=== PATIENT | female | born 1940 | race Caucasian/White ===

== ENCOUNTER 2016-09-21 05:56 | Inpatient (IN) | payer MEDICARE, BC ==
[2016-09-17 16:11] LABS: BASOPHILS 0.2 %; BASOPHILS ABSOLUTE 0.02 10/3/uL (0.0-0.16); EOSINOPHILS 4.3 %; EOSINOPHILS ABSOLUTE 0.36 10/3/uL (0.0-0.53); HEMOGLOBIN 14.6 g/dL (12.0-16.0); IMMATURE GRANULOCYTES 0.1 %; IMMATURE GRANULOCYTES ABSOLUTE 0.01 10/3/uL (0.0-0.11); LYMPHOCYTES 22.3 %; LYMPHOCYTES ABSOLUTE 1.88 10/3/uL (0.67-4.30); MEAN CORPUS HGB CONC 32.7 g/dL (32.0-36.0); MEAN CORPUSCULAR HEMOGLOB 27.2 pg (26.0-34.0); MEAN PLATELET VOLUME 9.4 fL (9.2-13.0); MONOCYTES ABSOLUTE 0.76 10/3/uL (0.21-1.20); NEUTROPHILS 64.1 %; PLATELET COUNT 333 10/3/uL (150-400); RBC DISTRIBUTION WIDTH 15.2 % (12.0-16.0); WHITE BLOOD CELLS 8.4 10/3/uL (4.5-10.5)
[2016-09-17 16:12] LABS: HEMATOCRIT 44.7 % (36.0-48.0); MANUAL DIFF NO %; MEAN CORPUSCULAR VOLUME 83.4 fL (80-100); RED CELL COUNT 5.36 10/6/uL (4.0-5.6)
[2016-09-17 16:19] LABS: INTERNATIONAL NORMAL RATI 1.1 UNITS (-); PARTIAL THROMBO TIME 29.2 SEC (22.5-37.2); PROTIME (NOT ORD) 13.6 SEC (12.0-14.5)
[2016-09-17 16:40] LABS: ALBUMIN 3.6 G/DL (3.5-5.0); CALCIUM, SERUM 9.1 MG/DL (8.5-10.4); CHLORIDE, SERUM 103 MMOL/L (96-112); CO2 (CARBON DIOXIDE) 29 MMOL/L (24-34); CREATININE 0.61 MG/DL (0.55-1.02); GFR AFRICAN AMERICAN 104 ML/MIN (>=60); GFR NON AFRICAN AMERICAN 89 ML/MIN (>=60); GLOBULIN 3.5 G/DL (2.5-4.1); GLUCOSE, SERUM 160 MG/DL (60-99); POTASSIUM, SERUM 3.9 MMOL/L (3.5-5.3); SGOT(AST) 33 U/L (5-40); SGPT(ALT) 39 U/L (5-65); SODIUM, SERUM 143 MMOL/L (135-148); TOTAL BILIRUBIN 0.6 MG/DL (0-1.2); TOTAL PROTEIN 7.1 G/DL (6.0-8.5)
[2016-09-17 16:41] LABS: ALKALINE PHOSPHATASE 176 U/L (45-117); BUN (BLOOD UREA NITROGEN) 18 MG/DL (6-23)
--- NOTE | ~2016-09-21 | DS ---
Discharge Summary [facility] [address] [place]. [address] NAME: UVALDO FRIAS : 44 STATUS : DIS IN PAT#: [id number] AGE: 76 ADM/REG DATE : 09/21/16 MR#: [id number] REPORT SERV DATE: 10/28/16 DICTATED BY: RAQUEL BROWN DATE: 10/27/16 REPORT STATUS : Draft TRANSCRIBED BY: RACHELLE DATE: 10/27/16 ADMISSION DATE: 09/21/2016 DISCHARGE DATE: 10/01/2016 HISTORY OF PRESENT ILLNESS: The patient is a very pleasant white female who was found to have a pancreatic head mass. She underwent a Whipple on 09/21/2016. The details of her postoperative course could be found in the chart. Of note, she did suffer from delayed gastric emptying and had to be placed on TPN. The patient overall recovered from her surgery well and was discharged to [facility] on 09/27/2016. The patient will follow up with me in 2 weeks post discharge. Activity is per rehab. Diet is as tolerated maintaining TPN until she can maintain her calorie and fluid intake. JOSE/RACHELLE Raquel Brown MD / [id number] CC: MD Meena Villanueva M.D.
--- NOTE | ~2016-09-21 | OP ---
Record Of Operation [facility] [address] [place]. [address] NAME: UVALDO FRIAS : 44 STATUS : ADM IN [facility]#: [id number] AGE: 76 ADM/REG DATE : 09/21/16 MR#: [id number] REPORT SERV DATE: 09/21/16 DICTATED BY: RAQUEL BROWN DATE: 09/21/16 REPORT STATUS : Draft TRANSCRIBED BY: MODL DATE: 09/21/16 DATE OF PROCEDURE: 09/21/2016 SERVICE: General surgery. SURGEON: Raquel Brown MD, who was present and scrubbed throughout. ELIGIBILITY ANALYST: Amador Solitario MD. PREOPERATIVE DIAGNOSIS: Pancreatic adenocarcinoma. POSTOPERATIVE DIAGNOSIS: Pancreatic adenocarcinoma. PROCEDURES: 1. Pancreaticoduodenectomy. 2. Wedge liver biopsy. 3. Omental pedicle flap. ANESTHESIA: General endotracheal. ESTIMATED BLOOD LOSS: Approximately 5 hours. COMPLICATIONS: None. IV FLUIDS: 2600. SPECIMENS: As above. BRIEF HISTORY: The patient is a very pleasant 76-year-old white female with an unfortunate diagnosis pancreatic head mass. Workup revealed this to be an adenocarcinoma. The risks, benefits, and alternatives to the procedure were explained to the patient in detail. The risks include, but are not limited to, bleeding, infection, reoperation, injury to surrounding structures, reactions to anesthetic medications, incisional hernias, perioperative cardiac events, perioperative thromboembolic events, perioperative pulmonary events including prolong ventilation, anastomotic leak, including pancreatic leak, delayed gastric emptying and possible . The patient is at a higher risk than normal due to her underlying COPD as well as previous lung resection. The patient and family stated a clear understanding of all the risks, as well as rationals of increased risks and requested the procedure be done. DESCRIPTION OF PROCEDURE: After surgical consent was obtained, the patient was transported to the operative theater, and onto the operating room table in supine position. General endotracheal anesthesia was administered without difficulty. The patient's abdomen was prepped and draped in standard sterile fashion. Preoperative antibiotics were given. A time-out was performed in order to ensure the proper patient and procedure. An incision was made through the upper midline and the underlying tissues were divided using electrocautery. Record Of Operation [facility] [address] [facility] [place]. [address] NAME: UVALDO FRIAS : 44 STATUS : ADM IN PAT#: [id number] AGE: 76 ADM/REG DATE : 09/21/16 MR#: [id number] REPORT SERV DATE: 09/21/16 DICTATED BY: RAQUEL BROWN DATE: 09/21/16 REPORT STATUS : Draft TRANSCRIBED BY: MODL DATE: 09/21/16 The fascia was divided sharply and the abdominal cavity was entered bluntly. The falciform ligament was ligated, divided, and preserved. A wound protector and Bookwalter devices were implemented to aid visualization. The abdomen then was palpated, no evidence of ascites, abdomen was examined visually and also palpated, and there was one several centimeter-size lesion in the left lobe. This was biopsied in a wedge fashion. Hemostasis was controlled using electrocautery. Pathologic examination revealed a sclerotic hemangioma. [QAMARKER] we proceeded with our dissection. We divided the gastrocolic ligament and entered the lesser sac. The middle colic and right upper pulmonary veins were identified and followed down to the SUV. A tunnel was made between the portal vein and pancreas inferiorly. We then turned our attention to the teddy hepatis. We divided the gastrohepatic ligament and identified the common hepatic artery. A large teddy hepatis lymph node was excised and sent with the specimen. It was enlarged but soft, benign. We divided the right gastric artery and vein, and identified the gastroduodenal artery. We doubly ligated distally and proximally, and then divided with scissors. Prior to transecting the gastroduodenal artery, we occluded it and tested the arterial pulse to the hepatic artery and it remained unchanged. We kocherized the duodenum and felt no disease in the retroperitoneum. We encircled the common bile duct easily and identified the portal vein at the superior aspect of the pancreas. A tunnel was created between the portal vein superiorly and connected with a tunnel inferiorly. This plane was preserved with a Josie drain. We divided the common bile duct using electrocautery. The previously placed stent with inferior to our incision and was in the specimen. we divided the greater and lesser omentum at the distal stomach and then divided the stomach several centimeters upstream from the pylorus using a ARIAN stapler with a green load. We then turned our attention to the proximal jejunum. The proximal jejunum was identified. There were multiple [QAMARKER] large diverticula and evidence of chronic inflammation in the past. We freed the jejunum from the transverse colon mesentery and then divided the proximal jejunum 20 cm distal to ligament of Treitz. The mesentery of the proximal jejunum and the ligament of Treitz were divided using the Harmonic Scalpel. This was done until we could sweep the jejunum to the right side of the abdomen. We then placed hemostatic stay sutures on the anterior and superior aspect of the pancreas and divided the pancreatic neck over the Marshall drain using electrocautery. We then very carefully dissected the uncinate process away from the portal vein and transected it using the Harmonic Scalpel. During this transection the superior mesenteric artery was identified and preserved. We marked the biliary and pancreatic margins and these were tested and found to be benign. The tumor was identified within the pancreatic head. At this point, we began our reconstruction. We found a bare area in the transverse mesentery [QAMARKER] and opened this up with electrocautery. We brought our proximal jejunum up through this hole without difficulty. We elevated the pancreatic body up away from the splenic vein in preparation for the pancreaticojejunostomy. This was done in a two layer biqe-jk-bxfwgq fashion. The inner layer was done again in a zgbx-cn-hnvuax fashion using interrupted 4-0 PDS sutures. The outer layer was done with interrupted 3-0 silks both superiorly and inferiorly. Approximately 10 cm downstream from the pancreaticojejunostomy, we created our hepaticojejunostomy. This was done, a single layer end-to-side [id number]-btlxff fashion. We used interrupted 4-0 PDS sutures. The jejunum was tacked to the transverse colon mesentery with interrupted silk suture. The distal jejunum was brought up in a loop fashion for gastrojejunostomy. This was done in the antecolic stapled fgoc-fj-xlqu functional end-to-end fashion. We created our anastomosis using a ARIAN 75 stapler and the common enterotomy was then closed with TX60B. We placed cross sutures to Record Of Operation [address] [place]. [address] NAME: UVALDO FRIAS : 44 STATUS : ADM IN PAT#: [id number] AGE: 76 ADM/REG DATE : 09/21/16 MR#: [id number] REPORT SERV DATE: 09/21/16 DICTATED BY: RAQUEL BROWN DATE: 09/21/16 REPORT STATUS : Draft TRANSCRIBED BY: RACHELLE DATE: 09/21/16 stabilize our anastomosis and then sutured the greater omentum on top of the anastomosis for further protection. The falciform ligament which had been previously preserved was brought down on top of the pancreaticojejunostomy and sutured in place with omental pedicle flap with interrupted silk sutures. We placed two 19-Portuguese round Neil drains around our anastomoses. The left-sided drain laid superior to our anastomoses and the right-sided drain wrapped underneath all the anastomoses and then up and over. We copiously irrigated out the abdomen with 4 L of sterile saline. There was no evidence of additional pathology. We then closed the fascial defect, the most superior aspect with interrupted Vicryl suture and then ran the rest with a running looped PDS suture. The subcutaneous tissues above the fascia were irrigated out with pulse lavage system x4 L. The skin was closed with stapling device. The drains were secured at the skin level with nylon suture. The wounds were all dressed in standard fashion. At the end of the instrument, lap, and needle counts were all correct. The patient was awoke from anesthesia, having tolerated the procedure without difficulty and returned to PACU in stable condition. JOSE/RACHELLE Raquel Brown MD / [id number] CC: Raquel Brown MD
--- NOTE | ~2016-09-21 | CN ---
Consultation Report [facility] [address] [place]. [address] NAME: UVALDO FRAIS : 44 STATUS : ADM IN [facility]#: [id number] AGE: 76 ADM/REG DATE : 09/21/16 MR#: [id number] REPORT SERV DATE: 09/21/16 DICTATED BY: RUSTY AMARO DATE: 09/21/16 REPORT STATUS : Draft TRANSCRIBED BY: RACHELLE DATE: 09/21/16 CONSULTATION DATE OF CONSULTATION: TIME: 1740 hours. HISTORY OF PRESENT ILLNESS: The patient is a 76-year-old white female who this afternoon underwent Whipple procedure for pancreatic adenocarcinoma. Now postop, she was extubated in the PACU. Her medical record and anesthesia record were reviewed. Currently, the patient is awake, alert, responsive. On nasal cannula oxygen. The anesthesia record revealed evidence of getting her Neil-Synephrine during surgery; however, she is not it now. Also, she had 20,000 mL of lactated Ringer's and 500 mL albumin. She had estimated blood loss not mentioned. PAST MEDICAL HISTORY: 1. Significant for lung cancer status post surgery at age 44. 2. Biliary stent placement for obstructive jaundice. 3. COPD. 4. Obstructive sleep apnea. 5. Intolerant to BiPAP. 6. Hypercholesterolemia. 7. Right rotator cuff repair. 8. Colon polyps removal. 9. UTI. 10.Positive FERNANDO. She is status post spinal surgery in lumbar area, status post hysterectomy, status post right lobectomy 40% along with recent cholecystectomy. ALLERGIES: NO KNOWN ALLERGIES. FAMILY HISTORY: Breast cancer. REVIEW OF SYSTEMS: Noted above. Otherwise, negative and noncontributory. MEDICATIONS: As listed, which included Neurontin, Lasix, Cymbalta, Voltaren, topical gel, vitamin D, Zyrtec, ProAir, Singulair, multivitamins, omeprazole, potassium, tiotropium and olodaterol, Detrol, salsalate, Mucinex, Benefiber. PHYSICAL EXAMINATION: GENERAL: The patient is awake and responsive. VITAL SIGNS: Stable. Blood pressure 117/60, pulse 119, afebrile, sat 95% on 6 L. HEENT: Head is normocephalic. Sclerae and conjunctivae are clear. NECK: Supple. No JVD. Good carotid upstroke. Consultation Report [facility] [address] [place]. [address] NAME: UVALDO FRIAS : 44 STATUS : ADM IN PAT#: [id number] AGE: 76 ADM/REG DATE : 09/21/16 MR#: [id number] REPORT SERV DATE: 09/21/16 DICTATED BY: RUSTY AMARO DATE: 09/21/16 REPORT STATUS : Draft TRANSCRIBED BY: MODL DATE: 09/21/16 CHEST: Clear to auscultation and percussion. No wheezing or rhonchi. CARDIAC: S1 and S2. Sinus tach. No murmurs. ABDOMEN: Dressed. EXTREMITIES: No clubbing, cyanosis, or edema. Pulses palpable. NEUROLOGIC: Cranial nerves 2 through 12 grossly intact. Deep tendon reflexes normal. LABORATORY DATA: Reveal pH 7.31, pCO2 of 45, pO2 of 96 on 50%. Base excess minus 4. Sodium 142, potassium 4.9, chloride 109, CO2 of 25, BUN 22, creatinine 0.77, glucose 173, calcium 7.9, magnesium 1.7. Total protein 5.5, albumin 2.9. ALT 115, AST 231. H and H 12.4 and 3.7, white count 16,200, platelet count is normal. Chest x-ray is clear. Platelet count 307,000, 71 polys, 10 bands. IMPRESSION: Status post Whipple procedure, mild chronic obstructive pulmonary disease, mild obstructive sleep apnea, previous biliary operations. PLAN: Continue bronchodilator protocol. Monitor fluid intake. RP/RACHELLE Rusty Amaro M.D. / [id number] CC: MD Meena Villanueva M.D.
[~2016-09-21 05:56] MED LIST: ALLERGY INJECTIONS IM/SC; BACDS PO; BENEFIBER PO; BIOTIN PO; BL FLAX SEED1000 MG OR; BREO ELLIPTA INH; CELEBREX2 PO; CYMBALTA60 PO; DETROLLA4 PO; FISH-EPA1000 MG PO; HARD NAILS PO; KDUR10 PO; L40 PO; MICROZIDE PO; MULTIPLE VIT PO; MULTIVIT/MIN PO; NEUR300 PO; PRAVAC PO; PRILO PO; PROAIR HFA INH; RESTASIS OPH; SAL750 PO; SINGULAIR1 PO; SPIRIVA INH; STIOLTO RESPIMAT4 GM INH; SYMBICORT 160/41 INH INH; VESICARE10 MG PO; VITAMIN D2000 UNIT PO; VITAMIN K PO; VOLTAREN1 % TOP; ZYRTEC ALLGY10 MG PO; [UNRECOGNIZED DRUG - OTHER] PO; [UNRECOGNIZED DRUG - OTHER] PO; [UNRECOGNIZED DRUG - OTHER] PO; [UNRECOGNIZED DRUG - OTHER] PO
[2016-09-21 13:18] LABS: BE (BASE EXCESS) -2.2 MEQ/L (0 +/- 2.5); CARBOXYHEMOGLOBIN 0.3 % (0-3); HCO3 (ACTUAL BICARBONATE) 23.1 MEQ/L (23-27); HEMOBLOGIN CONTENT 12.3 G/DL (12-16); INSTRUMENT SERIAL # 11843; METHEMOGLOBIN 0.4 % (0-3); MODE ANETHESIA MACHINE; O2 CONTENT 16.7 VOL% (18-24); PCO2 (CO2 TENSION) 42 MMHG (35-45); PO2 (O2 TENSION) 99 MMHG (79-93); SAMPLE Arterial; pH 7.36 (7.37-7.43)
[2016-09-21 16:05] LABS: HEMOGLOBIN 12.4 g/dL (12.0-16.0); MEAN CORPUSCULAR HEMOGLOB 26.7 pg (26.0-34.0); MEAN CORPUSCULAR VOLUME 83.4 fL (80-100); MEAN PLATELET VOLUME 9.2 fL (9.2-13.0); PLATELET COUNT 307 10/3/uL (150-400); RBC DISTRIBUTION WIDTH 15.5 % (12.0-16.0); RED CELL COUNT 4.64 10/6/uL (4.0-5.6)
[2016-09-21 16:15] LABS: HEMATOCRIT 38.7 % (36.0-48.0); MANUAL DIFF YES %; WHITE BLOOD CELLS 16.2 10/3/uL (4.5-10.5)
[2016-09-21 16:20] LABS: A/G RATIO 1.1 (0.7-1.9); ALBUMIN 2.9 G/DL (3.5-5.0); ALKALINE PHOSPHATASE 102 U/L (45-117); BUN (BLOOD UREA NITROGEN) 22 MG/DL (6-23); CALCIUM, SERUM 7.9 MG/DL (8.5-10.4); CHLORIDE, SERUM 109 MMOL/L (96-112); CO2 (CARBON DIOXIDE) 25 MMOL/L (24-34); CREATININE 0.77 MG/DL (0.55-1.02); GFR AFRICAN AMERICAN 88 ML/MIN (>=60); GFR NON AFRICAN AMERICAN 76 ML/MIN (>=60); GLOBULIN 2.6 G/DL (2.5-4.1); GLUCOSE, SERUM 173 MG/DL (60-99); PHOSPHORUS, SERUM 4.7 MG/DL (2.5-4.5); POTASSIUM, SERUM 4.9 MMOL/L (3.5-5.3); SGOT(AST) 236 U/L (5-40); SGPT(ALT) 115 U/L (5-65); SODIUM, SERUM 142 MMOL/L (135-148); TOTAL BILIRUBIN 0.8 MG/DL (0-1.2); TOTAL PROTEIN 5.5 G/DL (6.0-8.5)
[2016-09-21 16:39] LABS: CARBOXYHEMOGLOBIN 0.1 % (0-3); DEVICE SM; HCO3 (ACTUAL BICARBONATE) 22.2 MEQ/L (23-27); HEMOBLOGIN CONTENT 13.3 G/DL (12-16); INSTRUMENT SERIAL # 11843; METHEMOGLOBIN 0.3 % (0-3); OPERATOR ID 19104; PCO2 (CO2 TENSION) 45 MMHG (35-45); PO2 (O2 TENSION) 96 MMHG (79-93); SAMPLE Arterial; pH 7.31 (7.37-7.43)
[2016-09-21 17:35] LABS: BAND NEUTROPHILS 16 %; IMMATURE GRANS ABSOLUTE (CALC) 0.65 10/3/uL (0.0-0.11); LYMPHOCYTES 7 %; LYMPHOCYTES ABSOLUTE (CALC) 1.13 10/3/uL (0.67-4.30); METAMYELOCYTES 4 %; MONOCYTES 2 %; MONOCYTES ABSOLUTE (CALC) 0.32 10/3/uL (0.21-1.20); NEUTROPHILS ABSOLUTE (CALC) 14.09 10/3/uL (2.02-8.40); PLATELET ESTIMATE ADQ (ADEQUATE); RBC MORPHOLOGY NORM (NORMAL); SEGMENTED NEUTROPHIL (0) 71 %; TOTAL NUCLEATED CELLS 100
[2016-09-22 04:15] LABS: BASOPHILS 0.2 %; BASOPHILS ABSOLUTE 0.03 10/3/uL (0.0-0.16); EOSINOPHILS 0.1 %; EOSINOPHILS ABSOLUTE 0.02 10/3/uL (0.0-0.53); HEMOGLOBIN 10.8 g/dL (12.0-16.0); IMMATURE GRANULOCYTES 0.4 %; IMMATURE GRANULOCYTES ABSOLUTE 0.05 10/3/uL (0.0-0.11); LYMPHOCYTES 9.8 %; LYMPHOCYTES ABSOLUTE 1.37 10/3/uL (0.67-4.30); MEAN CORPUS HGB CONC 31.9 g/dL (32.0-36.0); MEAN CORPUSCULAR VOLUME 84.8 fL (80-100); MEAN PLATELET VOLUME 9.2 fL (9.2-13.0); MONOCYTES 12.5 %; MONOCYTES ABSOLUTE 1.75 10/3/uL (0.21-1.20); NEUTROPHILS ABSOLUTE 10.79 10/3/uL (2.02-8.40); PLATELET COUNT 270 10/3/uL (150-400); RBC DISTRIBUTION WIDTH 15.4 % (12.0-16.0)
[2016-09-22 04:16] LABS: HEMATOCRIT 33.9 % (36.0-48.0); MANUAL DIFF NO %
[2016-09-22 04:32] LABS: ALBUMIN 2.7 G/DL (3.5-5.0); CALCIUM, SERUM 7.3 MG/DL (8.5-10.4); CHLORIDE, SERUM 108 MMOL/L (96-112); CO2 (CARBON DIOXIDE) 28 MMOL/L (24-34); CREATININE 0.57 MG/DL (0.55-1.02); GFR AFRICAN AMERICAN 106 ML/MIN (>=60); GFR NON AFRICAN AMERICAN 91 ML/MIN (>=60); GLOBULIN 2.8 G/DL (2.5-4.1); GLUCOSE, SERUM 153 MG/DL (60-99); PHOSPHORUS, SERUM 4.3 MG/DL (2.5-4.5); POTASSIUM, SERUM 4.1 MMOL/L (3.5-5.3); SGOT(AST) 120 U/L (5-40); SGPT(ALT) 83 U/L (5-65); SODIUM, SERUM 143 MMOL/L (135-148); TOTAL BILIRUBIN 0.8 MG/DL (0-1.2); TOTAL PROTEIN 5.5 G/DL (6.0-8.5)
[2016-09-22 04:36] LABS: ALKALINE PHOSPHATASE 85 U/L (45-117); BUN (BLOOD UREA NITROGEN) 17 MG/DL (6-23)
[2016-09-22 05:34] LABS: BE (BASE EXCESS) -0.6 MEQ/L (0 +/- 2.5); CARBOXYHEMOGLOBIN 0.9 % (0-3); DEVICE NC; HEMOBLOGIN CONTENT 11.4 G/DL (12-16); INSTRUMENT SERIAL # 8083; METHEMOGLOBIN 0.1 % (0-3); O2 CONTENT 14.8 VOL% (18-24); OPERATOR ID 16469; PCO2 (CO2 TENSION) 45 MMHG (35-45); PO2 (O2 TENSION) 69 MMHG (79-93); SAMPLE Arterial; pH 7.36 (7.37-7.43)
[2016-09-22 10:22] LABS: ALLENS TEST Pos; BE (BASE EXCESS) 1.8 MEQ/L (0 +/- 2.5); CARBOXYHEMOGLOBIN 1.3 % (0-3); DEVICE Nasal Cannula @ 6 l/; HCO3 (ACTUAL BICARBONATE) 26.8 MEQ/L (23-27); HEMOBLOGIN CONTENT 10.7 G/DL (12-16); INSTRUMENT SERIAL # 8083; O2 CONTENT 14.3 VOL% (18-24); OPERATOR ID 14382; PCO2 (CO2 TENSION) 44 MMHG (35-45); PO2 (O2 TENSION) 78 MMHG (79-93); SAMPLE Arterial
[2016-09-23 05:03] LABS: CALCIUM, SERUM 7.6 MG/DL (8.5-10.4); CHLORIDE, SERUM 105 MMOL/L (96-112); CO2 (CARBON DIOXIDE) 28 MMOL/L (24-34); CREATININE 0.49 MG/DL (0.55-1.02); GFR AFRICAN AMERICAN 111 ML/MIN (>=60); GFR NON AFRICAN AMERICAN 96 ML/MIN (>=60); GLUCOSE, SERUM 150 MG/DL (60-99); POTASSIUM, SERUM 4.1 MMOL/L (3.5-5.3); SODIUM, SERUM 142 MMOL/L (135-148)
[2016-09-23 05:05] LABS: BUN (BLOOD UREA NITROGEN) 10 MG/DL (6-23); PHOSPHORUS, SERUM 2.1 MG/DL (2.5-4.5)
[2016-09-23 05:20] LABS: BASOPHILS 0.2 %; BASOPHILS ABSOLUTE 0.03 10/3/uL (0.0-0.16); EOSINOPHILS 3.3 %; EOSINOPHILS ABSOLUTE 0.46 10/3/uL (0.0-0.53); HEMATOCRIT 31.9 % (36.0-48.0); HEMOGLOBIN 9.7 g/dL (12.0-16.0); IMMATURE GRANULOCYTES 0.4 %; IMMATURE GRANULOCYTES ABSOLUTE 0.05 10/3/uL (0.0-0.11); LYMPHOCYTES 11.5 %; LYMPHOCYTES ABSOLUTE 1.59 10/3/uL (0.67-4.30); MEAN CORPUS HGB CONC 30.4 g/dL (32.0-36.0); MEAN CORPUSCULAR HEMOGLOB 26.3 pg (26.0-34.0); MEAN CORPUSCULAR VOLUME 86.4 fL (80-100); MEAN PLATELET VOLUME 9.4 fL (9.2-13.0); MONOCYTES 13.3 %; MONOCYTES ABSOLUTE 1.83 10/3/uL (0.21-1.20); NEUTROPHILS 71.3 %; NEUTROPHILS ABSOLUTE 9.81 10/3/uL (2.02-8.40); PLATELET COUNT 265 10/3/uL (150-400); RED CELL COUNT 3.69 10/6/uL (4.0-5.6); WHITE BLOOD CELLS 13.8 10/3/uL (4.5-10.5)
[2016-09-23 05:23] LABS: MANUAL DIFF NO %
[2016-09-24 04:49] LABS: BASOPHILS 0.2 %; BASOPHILS ABSOLUTE 0.02 10/3/uL (0.0-0.16); EOSINOPHILS 7.7 %; EOSINOPHILS ABSOLUTE 0.88 10/3/uL (0.0-0.53); HEMATOCRIT 29.4 % (36.0-48.0); HEMOGLOBIN 9.2 g/dL (12.0-16.0); IMMATURE GRANULOCYTES 0.4 %; IMMATURE GRANULOCYTES ABSOLUTE 0.04 10/3/uL (0.0-0.11); LYMPHOCYTES 16.4 %; LYMPHOCYTES ABSOLUTE 1.87 10/3/uL (0.67-4.30); MEAN CORPUS HGB CONC 31.3 g/dL (32.0-36.0); MEAN CORPUSCULAR HEMOGLOB 27.3 pg (26.0-34.0); MEAN CORPUSCULAR VOLUME 87.2 fL (80-100); MEAN PLATELET VOLUME 9.6 fL (9.2-13.0); MONOCYTES 11.8 %; MONOCYTES ABSOLUTE 1.35 10/3/uL (0.21-1.20); NEUTROPHILS 63.5 %; NEUTROPHILS ABSOLUTE 7.24 10/3/uL (2.02-8.40); PLATELET COUNT 226 10/3/uL (150-400); RBC DISTRIBUTION WIDTH 15.5 % (12.0-16.0); RED CELL COUNT 3.37 10/6/uL (4.0-5.6); WHITE BLOOD CELLS 11.4 10/3/uL (4.5-10.5)
[2016-09-24 04:54] LABS: MANUAL DIFF NO %
[2016-09-24 05:09] LABS: CALCIUM, SERUM 7.8 MG/DL (8.5-10.4); CHLORIDE, SERUM 106 MMOL/L (96-112); CO2 (CARBON DIOXIDE) 29 MMOL/L (24-34); CREATININE 0.35 MG/DL (0.55-1.02); GFR AFRICAN AMERICAN 124 ML/MIN (>=60); GFR NON AFRICAN AMERICAN 107 ML/MIN (>=60); SODIUM, SERUM 142 MMOL/L (135-148)
[2016-09-24 05:11] LABS: BUN (BLOOD UREA NITROGEN) 4 MG/DL (6-23); GLUCOSE, SERUM 106 MG/DL (60-99); POTASSIUM, SERUM 4.1 MMOL/L (3.5-5.3)
[2016-09-27 20:25] LABS: AMYLASE BODY FLUID 10 U/L
[2016-09-27 20:25] LABS: AMYLASE BODY FLUID 13 U/L
[2016-09-27 21:51] LABS: BD FL SOURCE (NOT ORD) DRAIN 1
[2016-09-27 21:51] LABS: BD FL SOURCE (NOT ORD) DRAIN 2
[2016-09-28 08:29] LABS: BASOPHILS 0.2 %; BASOPHILS ABSOLUTE 0.03 10/3/uL (0.0-0.16); EOSINOPHILS 9.1 %; EOSINOPHILS ABSOLUTE 1.13 10/3/uL (0.0-0.53); HEMATOCRIT 31.1 % (36.0-48.0); HEMOGLOBIN 9.8 g/dL (12.0-16.0); IMMATURE GRANULOCYTES ABSOLUTE 0.25 10/3/uL (0.0-0.11); LYMPHOCYTES 12.9 %; MEAN CORPUS HGB CONC 31.5 g/dL (32.0-36.0); MEAN CORPUSCULAR HEMOGLOB 26.6 pg (26.0-34.0); MEAN CORPUSCULAR VOLUME 84.3 fL (80-100); MEAN PLATELET VOLUME 8.7 fL (9.2-13.0); MONOCYTES 7.8 %; MONOCYTES ABSOLUTE 0.97 10/3/uL (0.21-1.20); NEUTROPHILS ABSOLUTE 8.44 10/3/uL (2.02-8.40); PLATELET COUNT 367 10/3/uL (150-400); RBC DISTRIBUTION WIDTH 15.3 % (12.0-16.0); RED CELL COUNT 3.69 10/6/uL (4.0-5.6); WHITE BLOOD CELLS 12.4 10/3/uL (4.5-10.5)
[2016-09-28 08:39] LABS: BUN (BLOOD UREA NITROGEN) 7 MG/DL (6-23); CALCIUM, SERUM 8.3 MG/DL (8.5-10.4); CHLORIDE, SERUM 102 MMOL/L (96-112); CO2 (CARBON DIOXIDE) 25 MMOL/L (24-34); CREATININE 0.24 MG/DL (0.55-1.02); GFR AFRICAN AMERICAN 141 ML/MIN (>=60); GFR NON AFRICAN AMERICAN 121 ML/MIN (>=60); GLUCOSE, SERUM 104 MG/DL (60-99); POTASSIUM, SERUM 3.6 MMOL/L (3.5-5.3); SODIUM, SERUM 140 MMOL/L (135-148)
[2016-09-28 09:14] LABS: PREALBUMIN 11.3 MG/DL (17.0-43.0)
[2016-09-28 09:15] LABS: PHOSPHORUS, SERUM 3.3 MG/DL (2.5-4.5); TRIGLYCERIDE 167 MG/DL (< 150)
[2016-09-29 06:11] LABS: CALCIUM, SERUM 8.6 MG/DL (8.5-10.4); CHLORIDE, SERUM 102 MMOL/L (96-112); CO2 (CARBON DIOXIDE) 29 MMOL/L (24-34); CREATININE 0.35 MG/DL (0.55-1.02); GFR AFRICAN AMERICAN 124 ML/MIN (>=60); GFR NON AFRICAN AMERICAN 107 ML/MIN (>=60); PHOSPHORUS, SERUM 2.8 MG/DL (2.5-4.5); POTASSIUM, SERUM 3.5 MMOL/L (3.5-5.3); SODIUM, SERUM 140 MMOL/L (135-148)
[2016-09-29 06:12] LABS: BUN (BLOOD UREA NITROGEN) 11 MG/DL (6-23); GLUCOSE, SERUM 130 MG/DL (60-99)
[2016-09-30 06:55] LABS: BUN (BLOOD UREA NITROGEN) 19 MG/DL (6-23); CHLORIDE, SERUM 102 MMOL/L (96-112); CO2 (CARBON DIOXIDE) 27 MMOL/L (24-34); CREATININE 0.41 MG/DL (0.55-1.02); GFR AFRICAN AMERICAN 118 ML/MIN (>=60); GFR NON AFRICAN AMERICAN 102 ML/MIN (>=60); GLUCOSE, SERUM 156 MG/DL (60-99); POTASSIUM, SERUM 3.9 MMOL/L (3.5-5.3); SODIUM, SERUM 137 MMOL/L (135-148)
[2016-10-01 07:05] LABS: BUN (BLOOD UREA NITROGEN) 20 MG/DL (6-23); CALCIUM, SERUM 8.7 MG/DL (8.5-10.4); CHLORIDE, SERUM 101 MMOL/L (96-112); CO2 (CARBON DIOXIDE) 27 MMOL/L (24-34); CREATININE 0.42 MG/DL (0.55-1.02); GFR AFRICAN AMERICAN 117 ML/MIN (>=60); GFR NON AFRICAN AMERICAN 101 ML/MIN (>=60); GLUCOSE, SERUM 179 MG/DL (60-99); PHOSPHORUS, SERUM 3.2 MG/DL (2.5-4.5); SODIUM, SERUM 138 MMOL/L (135-148)
[2016-12-14] MEDS ORDERED: SALSALATE PO (17:58)
== END 2016-10-01 21:03 | DRG 327 ==
LOC: SDC/OF 05:56 → PACU 15:39 → MIC 19:44 → 5SO 09-23 16:40
PROVIDERS: Transplant Surgery
DX: C17.0 Malignant neoplasm of duodenum (principal); K86.1 Other chronic pancreatitis; E44.0 Moderate protein-calorie malnutrition; C77.2 Secondary and unspecified malignant neoplasm of intra-abdominal lymph nodes; C78.89 Secondary malignant neoplasm of other digestive organs; J44.9 Chronic obstructive pulmonary disease, unspecified; G47.33 Obstructive sleep apnea (adult) (pediatric); K21.9 Gastro-esophageal reflux disease without esophagitis; Z86.010 Personal history of colon polyps; E78.00 Pure hypercholesterolemia, unspecified; Z87.440 Personal history of urinary (tract) infections; Z80.3 Family history of malignant neoplasm of breast; Z79.899 Other long term (current) drug therapy; Z85.118 Personal history of other malignant neoplasm of bronchus and lung; Z90.49 Acquired absence of other specified parts of digestive tract; Z98.890 Other specified postprocedural states; Z87.891 Personal history of nicotine dependence
CPT/HCPCS: 36415; 36569; 36600; 71010; 74020; 76705; 76998; 80048; 80053; 82150; 82330; 82805; 82962; 83735; 84100; 84134; 84478; 85025; 85610; 85730; 86850; 86900; 86901; 86920; 87015; 87070; 87075; 87077; 87102; 87116; 87186; 87205; 87641; 88307; 88309; 88331; 88332; 88341; 88342; 93005; 97110-GP; 97116-GP; 97162-GP; A9270-GY; C1751; G8978-CK-GP; G8979-CJ-GP; J0456; J0690; J2250; J2370; J2405; J2543; J2710; J2765; J3010; P9045

== ENCOUNTER 2016-11-12 06:38 | Day surgery (SDC) | payer MEDICARE, BC ==
[2016-11-10 13:59] LABS: HEMATOCRIT 35.5 % (36.0-48.0); HEMOGLOBIN 10.6 g/dL (12.0-16.0)
--- NOTE | ~2016-11-12 | OP ---
Record Of Operation [facility] [address] [place]. [address] NAME: UVALDO FRIAS : 44 STATUS : REG [facility] PAT#: [id number] AGE: 76 ADM/REG DATE : 11/12/16 MR#: [id number] REPORT SERV DATE: 11/12/16 DICTATED BY: RAQUEL BROWN DATE: 11/12/16 REPORT STATUS : Draft TRANSCRIBED BY: MODL DATE: 11/12/16 DATE OF PROCEDURE: 11/12/2016 Attending physician, Dr. Raquel Brown, present and scrubbed throughout. PREOPERATIVE DIAGNOSIS: Status post Whipple for duodenal cancer, in need of adjuvant chemotherapy. POSTOPERATIVE DIAGNOSIS: Status post Whipple for duodenal cancer, in need of adjuvant chemotherapy. PROCEDURE: Placement of Port-A-Cath with ultrasound guidance. ANESTHESIA: MAC. ESTIMATED BLOOD LOSS: Less than 10 mL. COMPLICATIONS: None. SPECIMEN: None. 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 The patient has recovered from that very well and is in need of adjuvant chemotherapy. The risks, benefits, and alternatives to the procedure were explained to the patient in detail. The risks include, but not limited to, bleeding, infection, reoperation, pneumothorax, hemothorax, reaction to anesthetic medications, perioperative thromboembolic events, postoperative cardiac or pulmonary issues, and possible . The patient stated clear understanding of all of the risks and requested the procedure be done. DESCRIPTION OF PROCEDURE: After a time-out was performed in order to ensure the proper patient, procedure, and after surgical consent was obtained, the patient was transported to the operative theater onto the operating room table in the supine position. MAC anesthesia was administered without difficulty. The patient's neck and chest were prepped and draped in a standard sterile fashion. A time-out was performed in order to ensure the proper patient, procedure, and perioperative antibiotics. Utilizing ultrasound guidance, we identified the right internal jugular vein. We then entered the vein using a needle and advanced the guidewire down without issue. We confirmed guidewire positioning using fluoroscopy. We made a stab incision over the wire in the neck and then localized the right neck and chest. We tunneled the catheter up from the right chest to the right neck after making an incision in the right chest wall and creating a pocket in the subcutaneous tissues. We placed the dilator and peel-away sheath over the wire using Seldinger technique and removed the dilator and wire. The catheter was advanced without difficulty and peel- away sheath was removed without difficulty. Using fluoroscopy, we pulled back the catheter to position just above the right atrium. At the chest wall, we cut the catheter to the Record Of Operation [address] [address] NAME: UVALDO FRIAS : 44 STATUS : REG [facility] PAT#: [id number] AGE: 76 ADM/REG DATE : 11/12/16 MR#: [id number] REPORT SERV DATE: 11/12/16 DICTATED BY: RAQUEL BROWN DATE: 11/12/16 REPORT STATUS : Draft TRANSCRIBED BY: RACHELLE DATE: 11/12/16 appropriate size and attached it to the port without difficulty. The port easily flushed and aspirated. We sutured it and placed in the cavity using interrupted Prolene sutures. We took one final fluoroscopic image and the port was in excellent position with no kinking or twisting. We irrigated out the wounds with sterile saline and closed the dermal layers. We approximated the dermis and epidermis with interrupted Vicryl. We then used Dermabond to further close the skin. At the end of the procedure, the instrument and needle counts were all correct, and the patient was awoken from anesthesia having tolerated the procedure without difficulty, and returned to PACU in stable condition. JOSE/RACHELLE Raquel Brown MD / [id number] CC: MD Meena Villanueva M.D.
[2016-12-14] MEDS ORDERED: SALSALATE PO (17:58)
== END 2016-11-12 16:17 | disposition home or self-care (01) ==
LOC: SDC 06:38
PROVIDERS: Transplant Surgery
PROC: B513YZA Fluoroscopy of Right Jugular Veins using Other Contrast, Guidance (ICD-10-PCS; 2016-11-12)
PROC: B543ZZA Ultrasonography of Right Jugular Veins, Guidance (ICD-10-PCS; 2016-11-12)
PROC: 0JH60XZ Insertion of Tunneled Vascular Access Device into Chest Subcutaneous Tissue and Fascia, Open Approach (ICD-10-PCS; 2016-11-12)
PROC: 05HM33Z Insertion of Infusion Device into Right Internal Jugular Vein, Percutaneous Approach (ICD-10-PCS; principal; 2016-11-12 07:45)
DX: C17.0 Malignant neoplasm of duodenum (principal); J44.9 Chronic obstructive pulmonary disease, unspecified; G47.33 Obstructive sleep apnea (adult) (pediatric); K21.9 Gastro-esophageal reflux disease without esophagitis; M79.7 Fibromyalgia; F41.9 Anxiety disorder, unspecified; E78.5 Hyperlipidemia, unspecified; Z85.118 Personal history of other malignant neoplasm of bronchus and lung; Z87.891 Personal history of nicotine dependence; Z90.711 Acquired absence of uterus with remaining cervical stump; Z90.49 Acquired absence of other specified parts of digestive tract; Z79.899 Other long term (current) drug therapy
CPT/HCPCS: 71010; 76000; 77001; 85014; 85018; 93005; J0690; J3010